=== PATIENT | female | born 1950 | race African-American/Black ===

== ENCOUNTER 2017-05-10 15:06 | Emergency (ER) | payer MEDICAID ==
[~2017-05-10] VITALS: Ht 167.6 cm; Wt 57.0 kg
[2017-05-10] MEDS ORDERED: MECLIZINE 25MG TABLET PO ONE (16:45)
[2017-05-10] MEDS ORDERED: ONDANSETRON HCL 4MG TABLET PO ONE (16:45)
[2017-05-10 17:30] LABS: BASOPHILS % 0.7 % (0.0-2.0); HEMATOCRIT. 37.7 % (36.0-48.0); HEMOGLOBIN. 12.7 g/dL (12.0-16.0); LYMPHOCYTES % 32.8 % (20.0-50.0); MEAN CORPUSCULAR VOLUME 89.3 fL (81.0-99.0); MEAN PLATELET VOLUME 9.1 fl (7.4-10.4); MONOCYTES % 6.3 % (2.0-8.0); NEUTROPHILS % 59.2 % (40.0-76.0); PLATELET 151 x1000/uL (130-400); RED BLOOD CELL COUNT 4.22 mill/uL (4.2-5.4); RED CELL DISTRIBUTION WIDTH 13.6 % (11.6-14.6)
[2017-05-10 17:34] LABS: CHLORIDE 107 mEq/L (98-107)
[2017-05-10 17:39] LABS: CLARITY URINE CLEAR (CLEAR); COLOR URINE YELLOW (YELLOW); GLUCOSE URINE NEGATIVE (NEGATIVE); KETONES URINE TRACE (NEGATIVE); LEUKOCYTE ESTERASE URINE 1+ (NEGATIVE); NITRITE URINE NEGATIVE (NEGATIVE); OCCULT BLOOD URINE NEGATIVE (NEGATIVE); PROTEIN URINE NEGATIVE (NEGATIVE); UROBILINOGEN URINE 0.2 E.U./dL (0.2-1.0)
[2017-05-10 17:42] LABS: CARBON DIOXIDE 28 mEq/L (21-32)
[2017-05-10 18:26] VITALS: BP 116/60
== END 2017-05-10 18:27 | disposition home or self-care (01) ==
LOC: ER 15:42
DX: R42 Dizziness and giddiness (principal); R11.2 Nausea with vomiting, unspecified; J45.909 Unspecified asthma, uncomplicated; Z85.3 Personal history of malignant neoplasm of breast; Z88.0 Allergy status to penicillin
CPT/HCPCS: 36415; 80053; 81001; 85025; 99284; Q0162; J8597